=== PATIENT | female | born 1970 | race African-American/Black ===

== ENCOUNTER 2023-05-14 09:49 | Emergency (ER) | payer MEDICARE, OTHER ==
[2023-05-14 10:03] VITALS: RESP 16; BMI 33.3
[2023-05-14] MEDS ORDERED: VANCOMYCIN 1,000 MG in DEXTROSE 5%-WATER - 250 ML IVPB ONE (11:23)
[2023-05-14] MEDS ORDERED: PIPERACILLIN/TAZOB 4.5 GM 4.5 GM in DEXTROSE 5%-WATER 100 ML IVPB ONE (11:24)
[2023-05-14] MEDS ORDERED: PIPERACILLIN/TAZOB 4.5 GM 4.5 GM/100 ML BAG IVPB ONE (11:33)
[2023-05-14] MEDS ORDERED: VANCOMYCIN/WATER FOR INJ (PEG) 1,000 MG/200 ML BAG IVPB ONE (11:34)
[2023-05-14 11:43] LABS: BASO % 0.7 % (0-2.0); EOS % 1.5 % (0-4.5); HEMATOCRIT 43.6 % (32.4-45.2); MCH 31.8 pg (25.7-33.7); MCHC 34.5 g/dl (32.0-36.0); MEAN CELL VOLUME 92.2 fl (80-96); MEAN PLT VOLUME 6.8 fl (7.5-11.1); MONO % 6.8 % (3.8-10.2); PLATELET COUNT 321 10^3/uL (134-434); RBC 4.72 M/mm3 (3.60-5.2); RDW 14.8 % (11.6-15.6); WHITE BLOOD COUNT 7.2 K/mm3 (4.0-10.0)
[2023-05-14 12:10] LABS: POTASSIUM 3.9 mmol/L (3.5-5.1)
[2023-05-14 12:11] LABS: CALCIUM 9.8 mg/dL (8.5-10.1)
[2023-05-14 12:12] LABS: BLOOD UREA NITROGEN 16.7 mg/dL (7-18)
[2023-05-14 12:15] LABS: CREATININE 0.9 mg/dL (0.55-1.3)
[2023-05-14 12:17] LABS: BILIRUBIN,TOTAL 0.4 mg/dL (0.2-1); TOT PROT 7.4 g/dl (6.4-8.2)
[2023-05-14 16:29] VITALS: BP 172/100; PULSE 65; TEMP 98.2
== END 2023-05-14 16:28 | disposition home or self-care (01) ==
LOC: JERFT 09:49
DX: H92.01 Otalgia, right ear (principal); R22.0 Localized swelling, mass and lump, head; R22.1 Localized swelling, mass and lump, neck; L03.213 Periorbital cellulitis
CPT/HCPCS: 36415; 70491-TC; 80053; 85025; 96368; 99284-25; Q9967